=== PATIENT | female | born 1985 | race Caucasian/White ===

== ENCOUNTER 2023-07-31 20:45 | Emergency (ER) | payer MEDICAID ==
[~2023-07-31] VITALS: Ht 185.4 cm; Wt 79.4 kg
[2023-07-31 20:50] VITALS: BP_SYST 120; PULSE 115; RESP 18; TEMP 97.6; O2SAT 95
[2023-07-31 21:16] VITALS: BP_SYST 123; PULSE 90; RESP 20; TEMP 97.7; O2SAT 99
== END 2023-07-31 21:13 ==
LOC: SED 20:45
DX: R07.89 Other chest pain (principal)
CPT/HCPCS: 93005; 99283